=== PATIENT | female | born 1980 | race Caucasian/White ===

== ENCOUNTER → 2024-09-04 11:02 | Outpatient (BNVA) | payer BC, MEDICAID, SELFPAY | PROVIDERS: PCP Nurse Practitioner Family; Visit Provider Nurse Practitioner Family | DX: I10 Essential (primary) hypertension (principal); R53.83 Other fatigue | CPT/HCPCS: 80053; 80061; 84439; 84443; 85025 ==

== ENCOUNTER → 2024-10-06 15:28 | Outpatient (BNVA) | payer BC, MEDICAID, SELFPAY | PROVIDERS: PCP Nurse Practitioner Family; Visit Provider Nurse Practitioner Family | DX: R10.9 Unspecified abdominal pain (principal); M54.9 Dorsalgia, unspecified | CPT/HCPCS: 81000; 87086 ==

== ENCOUNTER → 2024-12-02 10:46 | Outpatient (BNVA) | payer BC, MEDICAID, SELFPAY | PROVIDERS: PCP Nurse Practitioner Family; Visit Provider Nurse Practitioner Family | DX: I10 Essential (primary) hypertension (principal) | CPT/HCPCS: 80053; 80061; 84443 ==

== ENCOUNTER 2025-01-19 09:47 | Day surgery (SDC) | payer BC, MEDICAID, SELFPAY ==
[2025-01-19 10:07] VITALS: BP 132/84; PULSE 71; RESP 16; TEMP 36.9; O2SAT 96; BMI 31.6
[2025-01-19] MEDS: sodium chloride 0.9% 500 ML 15 ML IV (10:16)
--- NOTE | 2025-01-19 10:35 | ANES.PREANE2 ---
Pre-Anesthetic Assessment Height/Weight: Height 1.6 m Weight 81.193 kg Temp Pulse Resp BP Pulse Ox O2 Del Method 98.5 F 71 16 132/84 96 Room Air 01/19/25 10:07 01/19/25 10:07 01/19/25 10:07 01/19/25 10:07 01/19/25 10:07 01/19/25 10:07 Preop Diagnosis: GERD Operation Date: 01/19/25 10:45 Proposed Procedures p EGD 92555, K21.9(Not Applicable) - Iglesia Nuno MD Familial anesthetic complications: none Was Beta Jagdish taken within 24 hours: Yes Was Clonidine taken within 24 hours: N/A Last intake: Intake Last Liquid Date 01/18/25 Last Liquid Time 20:00 Last Solid Date 01/18/25 Last Solid Time 18:00 Social No alcohol and No tobacco Exam alert, oriented x 3, clear to auscultation bilaterally and regular rate & rhythm Airway Mallampati: Class II Dentition: full History/ROS No significant complaints Pulmonary None reported CV/HEM Hypertension None reported Hepatic None reported GI Gastroesophageal Reflux Disease Metabolic Thyroid Disease [facility] [place] None reported Neuropsych ADHD Anesthetic Plan ASA status: 2 Anesthesia: MAC Medications/Allergies Home Medications ?Medication ?Instructions ?Recorded ?Confirmed ?Last Taken ?Type levonorgestrel 0.15 mg-ethinyl 1 tab PO DAILY #273 ea 07/29/24 01/14/25 01/18/25 Rx estradiol 30 mcg tablets,3 mos pack(91) cyclobenzaprine 10 mg tablet 10 mg PO BID PRN muscle spasm 10 10/06/24 01/14/25 01/18/25 Rx days #20 tabs paroxetine HCl 40 mg tablet 40 mg PO DAILY #90 tabs 12/15/24 01/14/25 01/18/25 Rx levothyroxine 100 mcg capsule 100 mcg PO DAILY #30 caps 12/31/24 01/14/25 01/19/25 08:00 Rx buspirone 30 mg tablet 30 mg PO BID #60 tabs 01/04/25 01/14/25 01/18/25 Rx methylphenidate HCl 54 mg 54 mg PO DAILY adult attention 01/04/25 01/14/25 01/18/25 Rx tablet,extended release 24 hr defecit disorder 30 days #30 tabs gabapentin 300 mg capsule 600 mg (2 x 300 mg) PO TID 30 days 01/05/25 01/14/25 01/19/25 08:00 Rx #180 caps losartan 100 1 tab PO DAILY #90 tabs 01/07/25 01/14/25 01/18/25 Rx mg-hydrochlorothiazide 12.5 mg tablet minocycline 100 mg capsule 100 mg PO DAILY #30 caps 01/08/25 01/14/25 01/18/25 Rx sucralfate 100 mg/mL oral 10 ml PO BID 6 weeks #840 mL 01/11/25 01/14/25 01/18/25 Rx suspension nabumetone 500 mg tablet 500 mg PO BID PRN Pain 01/14/25 01/14/25 Unknown History propranolol 40 mg tablet 40 mg PO BID 01/14/25 01/14/25 01/19/25 08:00 History topiramate 50 mg tablet 50 mg PO BID 01/14/25 01/14/25 01/18/25 History rabeprazole 20 mg tablet,delayed 20 mg PO BID #60 tabs 01/18/25 Unknown Rx release (AcipHex) Allergies Allergy/AdvReac Type Severity Reaction Status Date / Time bupropion (From Wellbutrin) Allergy Unknown Verified 01/19/25 10:05 ciprofloxacin Allergy Unknown Verified 01/19/25 10:05 nitrofurantoin (From Allergy Unknown Verified 01/19/25 10:05 Macrobid) Current Medications Generic Name Dose Route Start Last Admin Trade Name Freq PRN Reason Stop Dose Admin Sodium Chloride 500 mls @ 15 mls/hr 01/19/25 09:47 01/19/25 10:16 Sodium Chloride 0.9% IV 01/20/25 09:46 15 mls/hr .Q24H PRN Administration COLONOSCOPY FLUIDS PFSH Anesthesia Medical History (Updated 12/31/24 @ 10:49 by SANTY Hartley) History of kidney stones Depression Anxiety Carpal tunnel syndrome of right wrist Osteoarthritis Migraines Hypothyroidism Hypertension Fibromyalgia Surgical History (Updated 01/07/25 @ 11:29 by MANUEL Baumann) History of appendectomy 1989 History of wisdom tooth extraction History of [id number] History of nasal septoplasty History of cholecystectomy 2019 History of tubal ligation Family History (Updated 01/07/25 @ 11:30 by MANUEL Baumann) Father Hyperlipidemia Hypertension Tachycardia Thyroid disease Kidney disease COPD (chronic obstructive pulmonary disease) Mother Diabetes mellitus, type 2 Breast cancer Other Kidney stones Migraines Denies family history of TIA (transient ischemic attack) Stroke Social History Smoking and tobacco/nicotine status: never used tobacco/nicotine Alcohol intake: never Substance/Drug Use: never Adopted: No Caregiver/support person: No Lives independently: No Household members: family service: No Current occupational status: employed Do you think of yourself as: Straight/Heterosexual Current gender identity: Female Data Anesthesia Cardiac Studies: No Data to Display
--- NOTE | 2025-01-19 11:12 | W.PM.OPSUD ---
Surgery/Procedure H&P Update DATE OF PROCEDURE: January 19, 2025 DATE H&P PERFORMED: 01/07/25 H&P UPDATE INFORMATION: I have reviewed H&P completed within last 30 days, I have examined patient prior to procedure and No changes to prior documentation PREOP DIAGNOSIS: GERD PLANNED PROCEDURE: Operation Date: 01/19/25 10:45 Proposed Procedures p EGD 71638, K21.9(Not Applicable) - Iglesia Nuno MD
[2025-01-19 11:27] VITALS: BP 103/64; PULSE 71; RESP 16; TEMP 36.7; O2SAT 97
[2025-01-19 11:53] VITALS: BP 101/70; PULSE 71; RESP 14; TEMP 36.6; O2SAT 98
[2025-01-19 12:10] VITALS: BP 105/72; PULSE 61; RESP 16; TEMP 36.7; O2SAT 100
--- NOTE | 2025-01-19 12:20 | ANE.PACU2 ---
Inpatient post-anesthesia follow up: Airway intact: Yes Vital signs: Temperature 98.1 F Pulse Rate 61 Respiratory Rate 16 Blood Pressure 105/72 Pulse Oximetry 100 Oxygen Delivery Me thod Room Air Oxygen Flow Rate 6 Fraction of Inspir ed Oxygen Hydration adequate: Yes Nausea and vomiting: No Pain level: 1 Mental status: Baseline
[2025-01-20 08:56] LABS: OR HCG Qualitative Urine Negative (Negative)
== END 2025-01-19 12:25 | disposition home or self-care (01) ==
PROVIDERS: Anesthesiology; PCP Nurse Practitioner Family; Visit Provider Student in an Organized Health Care Education/Training Program
PROC: 0DJ08ZZ Inspection of Upper Intestinal Tract, Via Natural or Artificial Opening Endoscopic (ICD-10-PCS; principal; 2025-01-19 10:45)
DX: K29.50 Unspecified chronic gastritis without bleeding (principal); K21.9 Gastro-esophageal reflux disease without esophagitis; I10 Essential (primary) hypertension; E03.9 Hypothyroidism, unspecified; Z79.899 Other long term (current) drug therapy; Z79.890 Hormone replacement therapy; Z88.8 Allergy status to other drugs, medicaments and biological substances; Z90.49 Acquired absence of other specified parts of digestive tract
CPT/HCPCS: 43239; 81025; 88305; 88342; J2704; J7040

== ENCOUNTER → 2025-02-18 09:41 | Outpatient (BNVA) | payer BC, MEDICAID, SELFPAY | PROVIDERS: PCP Nurse Practitioner Family; Visit Provider Nurse Practitioner Family | DX: R42 Dizziness and giddiness (principal); K21.00 Gastro-esophageal reflux disease with esophagitis, without bleeding; Z98.890 Other specified postprocedural states | CPT/HCPCS: 81000; 82607; 82652; 87086 ==

== ENCOUNTER → 2025-03-22 13:55 | Outpatient (BNVA) | payer BC, MEDICAID, SELFPAY | PROVIDERS: PCP Nurse Practitioner Family; Visit Provider Nurse Practitioner Family | DX: I10 Essential (primary) hypertension (principal); E03.9 Hypothyroidism, unspecified; R53.83 Other fatigue; R35.0 Frequency of micturition | CPT/HCPCS: 80053; 80061; 81000; 84443; 85025; 87086 ==

== ENCOUNTER → 2025-11-01 16:17 | Outpatient (BNVA) | payer BC, MEDICAID, SELFPAY | PROVIDERS: PCP Nurse Practitioner Family; Visit Provider Nurse Practitioner Family | DX: N30.00 Acute cystitis without hematuria (principal) | CPT/HCPCS: 81003 ==